=== PATIENT | female | born 1930 | race African-American/Black ===

== ENCOUNTER 2019-01-28 12:36 | Observation (INO) ==
[2019-01-28] MEDS ORDERED: ONDANSETRON 4 MG/2 ML VIAL IV PRN (16:28)
[2019-01-28] MEDS ORDERED: ACETAMINOPHEN 325 MG TABLET PO PRN (16:28)
[2019-01-28] MEDS ORDERED: metOLazone 5 MG TABLET PO PRN (16:36)
[2019-01-28] MEDS: ALBUTEROL/IPRATROPIUM 3 ML NEB RESP TX SCH (19:06)
[2019-01-28] MEDS ORDERED: ENOXAPARIN 30 MG/0.3 ML SYRINGE SUBCUT SCH (21:00)
[2019-01-28] MEDS: FUROSEMIDE 80 MG TABLET PO SCH (21:03)
[2019-01-28] MEDS: POTASSIUM CHLORIDE 20 MEQ TABLET PO SCH (21:03)
[2019-01-28] MEDS: guaiFENesin/DM ER 600-30 MG TABLET PO SCH (21:03)
[2019-01-28] MEDS: IPRATROPIUM 0.03% NASAL SPRAY 30 ML BOTTLE BOTH NARES SCH (21:07)
[2019-01-29] MEDS: ALBUTEROL/IPRATROPIUM 3 ML NEB RESP TX SCH ×2 (00:10→07:00)
[2019-01-29 04:11] LABS: ABG Base Excess 10.2 MMOL/L (-2.5-2.5); ABG Oxygen Saturation 98.8 % (95-100); ABG PH 7.333 (7.35-7.45); ABG TCO2 35.3 MMOL/L (23-27); Allen Test Positive
[2019-01-29 04:14] LABS: ABG PCO2 74.4 MM HG (35-48)
[2019-01-29 04:26] LABS: Basophils % 0.4 % (0.0-0.8); Eosinophils # 0.1 10*3/uL (0.0-0.87); Eosinophils % 2.2 % (0.00-10.9); Immature Granulocytes % 0.2 %; Immature Granulocytes Absolute 0.01 #; Lymphocytes # 1.6 10*3/uL (1.4-4.0); Lymphocytes % 35.3 % (21.3-54.2); Mean Corpuscular HGB Conc 28.8 GM/DL (32-36); Mean Corpuscular Volume 103.5 FL (87-102); Mean Platelet Volume 11.2 FL (9.6-12.0); Monocytes % 13.8 % (1.7-12.7); Neutrophils % 48.1 % (38.7-73.9); Platelet Count 206 T/CUMM (130-400); Red Blood Count 3.12 MC/CUMM (3.8-5.5); Red Cell Distribution Width 14.9 % (9.3-17.3); White Blood Count 4.6 T/CUMM (4-12)
[2019-01-29 04:47] LABS: Calcium 8.7 MG/DL (8.5-10.1); Osmolality,Calculated 287.4 MOS/KG (273-304)
[2019-01-29 04:51] LABS: Anisocytosis Slight; Hematocrit 32.1 VOL% (35.7-47.0); Hemoglobin 9.3 GM/DL (12.0-16.0)
[2019-01-29 04:52] LABS: Macrocytosis Slight; Platelet Estimate Normal
[2019-01-29 04:53] LABS: Polychromasia Slight; Stomatocytes Slight; Target Cells Few
[2019-01-29] MEDS ORDERED: POLYETHYLENE GLYCOL POWDER 17 GM PACK PO SCH (09:00)
[2019-01-29] MEDS ORDERED: COLCHICINE 0.3 MG PO SCH (09:00)
[2019-01-29] MEDS ORDERED: FLUTICASONE 50 MCG NASAL SPRAY 16 GM BOTTLE BOTH NARES SCH (09:00)
[2019-01-29] MEDS ORDERED: amLODIPine 2.5 MG TABLET PO SCH (09:00)
[2019-01-29] MEDS ORDERED: PANTOPRAZOLE 40 MG TABLET PO SCH (09:00)
[2019-01-29] MEDS: POTASSIUM CHLORIDE 20 MEQ TABLET PO SCH (09:17)
[2019-01-29] MEDS: guaiFENesin/DM ER 600-30 MG TABLET PO SCH (09:17)
[2019-01-29] MEDS: FUROSEMIDE 80 MG TABLET PO SCH (09:17)
[2019-01-29] MEDS: IPRATROPIUM 0.03% NASAL SPRAY 30 ML BOTTLE BOTH NARES SCH (09:18)
[2019-01-29 11:11] VITALS: BP 145/70
== END 2019-01-29 14:25 | disposition home or self-care (01) ==
LOC: N.4E 14:54 → INTOOBSV 14:54
PROVIDERS: ADMIT Internal Medicine; ATTEND Internal Medicine Geriatric Medicine